=== PATIENT | male | born 1955 | race Caucasian/White ===

== ENCOUNTER 2019-11-10 10:33 | Emergency (ER) | payer OTHER ==
[2019-11-10 10:36] VITALS: PULSE 98
--- NOTE | 2019-11-10 11:12 | EDM.PDOC ---
ED HPI GENERAL MEDICAL PROBLEM - General Chief Complaint: Laceration Stated Complaint: head laceration Time Seen by Provider: 11/10/19 10:42 Source of Information: Reports: Patient History Limitations: Reports: No Limitations - History of Present Illness INITIAL COMMENTS - FREE TEXT/NARRATIVE: Blaine is a 64 yo male who presents to the ED with complaints of a laceration to the back of his head. States he was going to go to the grocery store to get some butter for breakfast and was going down his steps outside. After getting to the bottom step he slipped on the ice and landed on the back of his head. He admits he got up right away but noticed he was bleeding from the back of the scalp. He denies any neck pain. Denies any visual disturbances. States he isn't on any blood thinners. Denies any confusion. Admits he wasn't even going to come in but thought he might need the laceration closed. Posterior Head Pain Score (Numeric/FACES): 2 - Related Data Allergies Allergy/AdvReac Type Severity Reaction Status Date / Time No Known Allergies Allergy Verified 11/10/19 10:36 Home Meds: Home Meds Aspirin [Halfprin] 81 mg PO DAILY 06/28/15 [History] Cholecalciferol (Vitamin D3) [Vitamin D3] 1,000 units PO DAILY 06/28/15 [History ] Simvastatin 20 mg PO DAILY 06/28/15 [History] Past Medical History Cardiovascular History: Reports: High Cholesterol - Infectious Disease History Infectious Disease History: Reports: None - Past Surgical History HEENT Surgical History: Reports: Tonsillectomy Social & Family History - Family History Family Medical History: Noncontributory - Tobacco Use Smoking Status *Q: Never Smoker - Caffeine Use Caffeine Use: Reports: Coffee, Soda - Recreational Drug Use Recreational Drug Use: No ED ROS GENERAL - Review of Systems Review Of Systems: Comprehensive ROS is negative, except as noted in HPI. Constitutional: Reports: No Symptoms Musculoskeletal: Denies: Neck Pain, Shoulder Pain, Arm Pain, Back Pain Neurological: Denies: Confusion, Dizziness, Headache, Pre-Existing Deficit, Seizure, Syncope, Difficulty Walking, Change in Speech, Gait Disturbance Psychiatric: Reports: No Symptoms ED EXAM, SKIN/RASH Exam: See Below Exam Limited By: No Limitations General Appearance: Alert, WD/WN, No Apparent Distress Eye Exam: Bilateral Eye: EOMI, Normal Inspection, PERRL Ears: Normal External Exam, Normal Canal, Hearing Grossly Normal, Normal TMs Nose: Normal Inspection, Normal Mucosa, No Blood Throat/Mouth: Normal Inspection, Normal Lips, Normal Teeth, Normal Oropharynx, Normal Voice, No Airway Compromise Head: Other (laceration to left occipital area) Neck: Normal Inspection, Supple, Non-Tender, Full Range of Motion. No: Tender Lateral, Tender Midline Extremities: Normal Inspection, Normal Range of Motion, Non-Tender Neurological: Alert, Oriented, CN II-XII Intact, Normal Cognition, Normal Gait, No Motor/Sensory Deficits Psychiatric: Normal Affect, Normal Mood Skin: Wound/Incision (6 cm superficial laceration to left posterior scalp. Mild bleeding noted. No bony deficits noted with palpation. ) ED SKIN PROCEDURES - Laceration/Wound Repair Left Posterior Head Appearance: Superficial, Linear, Clean Distal NVT: Neuro & Vascular Intact Skin Prep: Chlorhexidine (Hibiciens) Exploration/Debridement/Repair: Wound Explored, In a Bloodless Field, Explored to Base Closed with: Jacquelin Lac/Wound length In cm: 6 (9 jacquelin placed) Sterile Dressing Applied: Nurse Tetanus Status Addressed: Yes Complications: No Course - Vital Signs Last Recorded V/S: Last Vital Signs Temp 98.6 F 11/10/19 10:33 Pulse 98 11/10/19 10:33 Resp 16 11/10/19 10:33 BP 155/104 H 11/10/19 10:33 Pulse Ox 98 11/10/19 10:33 Departure - Departure Time of Disposition: 11:17 Disposition: Home, Self-Care 01 Clinical Impression: Laceration of scalp without complication Qualifiers: Encounter type: initial encounter Qualified Code(s): S01.01XA - Laceration without foreign body of scalp, initial encounter - Discharge Information Instructions: Stitches, Jacquelin, or Adhesive Wound Closure, [id number], Laceration Care, Adult, [id number] Additional Instructions: 1) Keep wound clean and dry for 48 hours. May change out dressing daily and apply triple antibiotic ointment/neosporin daily for first couple of days 2) Jacquelin out in 7 days in clinic and to have recheck of blood pressure. May want to have public health at your appointment tomorrow recheck blood pressure as well. 3) Watch for any changes in neurological status. If new onset of headaches, difficulty with speech, cervical pain, gait off or any concerns at all, advise returning for reevaluation. 4) Call if any concerns as well [phone] Sepsis Event Note - Evaluation Sepsis Screening Result: No Definite Risk - Focused Exam Vital Signs: Vital Signs Temp Pulse Resp BP Pulse Ox 11/10/19 10:33 98.6 F 98 16 155/104 H 98 Date Exam was Performed: 11/10/19 Time Exam was Performed: 11:06 - Problem List & Annotations (1) Laceration of scalp without complication SNOMED Code(s): 735983763 Code(s): S01.01XA - LACERATION WITHOUT FOREIGN BODY OF SCALP, INITIAL ENCOUNTER Status: Acute Qualifiers: Encounter type: initial encounter Qualified Code(s): S01.01XA - Laceration without foreign body of scalp, initial encounter - Assessment/Plan Plan: discussed wound closure with Blaine and his . Elected to proceed with jacquelin. 9 jacquelin placed today. See additional instructions. Patient did well and was alert and orientated entire time in ED. No obvious deficits. Will discharge home at this time in satisfactory and stable condition, which Blaine is in agreement.
[2019-11-10 12:27] VITALS: BP 137/83
== END 2019-11-10 11:32 | disposition home or self-care (01) ==
LOC: CC.ED 10:33
DX: S01.01XA Laceration without foreign body of scalp, initial encounter (principal); E78.00 Pure hypercholesterolemia, unspecified; Z79.82 Long term (current) use of aspirin; Z79.899 Other long term (current) drug therapy; W00.9XXA Unspecified fall due to ice and snow, initial encounter; Y92.512 Supermarket, store or market as the place of occurrence of the external cause
CPT/HCPCS: 12002; 99282

== ENCOUNTER → 2020-01-14 | Day surgery (SDC) | payer OTHER ==
[~2020-01-14] MED LIST: Lactated Ringers 1,000 ML IV SCH; Propofol 200 MG/20 ML SDV IV ONE
[2020-01-14 08:41] VITALS: BP 152/90; PULSE 68
--- NOTE | 2020-01-14 14:52 | OR ---
DATE OF OPERATION: 01/14/2020 PREOPERATIVE DIAGNOSIS: 1. FAMILY HISTORY OF COLON CARCINOMA. 2. HISTORY OF POLYPS. POSTOPERATIVE DIAGNOSIS: 1. FAMILY HISTORY OF COLON CARCINOMA. 2. HISTORY OF POLYPS. SURGEON: Bar Dominguez MD PROCEDURE: FULL-LENGTH COLONOSCOPY WITH SNARE POLYPECTOMY X2, FORCEPS POLYP REMOVAL X1. ANESTHESIA: MAC. COMPLICATIONS: None. SPECIMEN: 1. Tubulovillous adenomas x2, right colon. 2. Small tubular adenoma, splenic flexure. FINDINGS: 1. Full-length colonoscopy. 2. Moderate sigmoid diverticulosis. 3. Two villous adenomas, right colon. 4. Small tubular adenoma, splenic flexure. RECOMMENDATIONS: Followup colonoscopy in 3 years. INDICATIONS: The patient has a history of polyps being removed and a family history of colon cancer in his mother. He is due for a routine surveillance diagnostic scope. DESCRIPTION OF PROCEDURE: The patient was prepped and draped, placed in the left lateral decubitus position. A lubricated Olympus colonoscope was inserted and easily advanced to the cecum. We were able to directly visualize the ileocecal valve and appendiceal orifice. The bowel prep was adequate. There was some volume of solid stool in the rectal vault, but otherwise, the colon was visualized well. Upon withdrawal just outside the cecal pouch in the proximal ascending colon, the patient had a villous lesion along the haustral fold. It was quite deep in the fold, but we were able to get a snare around it and remove it in 2 separate pieces, suctioned into polyp trap #1 without any complication. The 2nd flatter polyp, villous, and probably a linear about a centimeter to 1.25 cm was along the haustral fold in the mid ascending colon, could not get a snare around this, and we ultimately removed the majority of this with 4 cold forceps biopsies. Irrigation improved resolution of bleeding. The rest of the ascending and transverse colon were unremarkable. On the transverse colon side of the splenic flexure, the patient had a small stalked tubular adenoma less than 0.5 cm removed with a snare and suctioned into polyp trap #2. The rest of the descending colon was unremarkable. The patient has fairly prominent diverticular disease in the sigmoid area without any inflammatory change, moderate in severity. No other polyps, masses, lesions, or ulcerations were seen. The rectal vault had a lot of stool. We were able to irrigate this and visualize quite well the rectal vault and I was able on retroflexion to see no perianal lesions. Air was then suctioned and the scope was removed without complication. NAHID/SAMI /[id number]
== END ==
LOC: CC.SDS 06:31
PROVIDERS: ATTEND Family Medicine
DX: Z12.11 Encounter for screening for malignant neoplasm of colon (principal); D12.0 Benign neoplasm of cecum; D12.2 Benign neoplasm of ascending colon; D12.3 Benign neoplasm of transverse colon; K57.30 Diverticulosis of large intestine without perforation or abscess without bleeding; E78.5 Hyperlipidemia, unspecified; N40.0 Benign prostatic hyperplasia without lower urinary tract symptoms; E66.9 Obesity, unspecified; G47.33 Obstructive sleep apnea (adult) (pediatric); Z80.0 Family history of malignant neoplasm of digestive organs; Z86.010 Personal history of colon polyps; Z79.899 Other long term (current) drug therapy; Z79.82 Long term (current) use of aspirin; Z98.890 Other specified postprocedural states; Z68.31 Body mass index [BMI] 31.0-31.9, adult
CPT/HCPCS: 45380; 45385; J2704; J7120

== ENCOUNTER → 2023-04-18 | Day surgery (SDC) | payer MEDICARE, BC ==
[~2023-04-18] MED LIST changes: +Ketamine 200 MG/20 ML MDV ONE; -Lactated Ringers 1,000 ML IV SCH; -Propofol 200 MG/20 ML SDV IV ONE; +Propofol 200 MG/20 ML SDV ONE; +fentaNYL 50 MCG/ML SDV ONE
[2023-04-18] MEDS: Lactated Ringers 1,000 ML IV SCH (09:50)
[2023-04-18 14:15] VITALS: BP 117/76; PULSE 56
== END ==
LOC: CC.SDS 09:32
PROVIDERS: ATTEND Family Medicine
DX: Z12.11 Encounter for screening for malignant neoplasm of colon (principal); D12.2 Benign neoplasm of ascending colon; D12.5 Benign neoplasm of sigmoid colon; K57.30 Diverticulosis of large intestine without perforation or abscess without bleeding; N40.0 Benign prostatic hyperplasia without lower urinary tract symptoms; E78.5 Hyperlipidemia, unspecified; L72.0 Epidermal cyst; G47.33 Obstructive sleep apnea (adult) (pediatric); K21.9 Gastro-esophageal reflux disease without esophagitis; Z80.0 Family history of malignant neoplasm of digestive organs; Z79.899 Other long term (current) drug therapy
CPT/HCPCS: 00811; J2704; J3010; J3490; J7120